=== PATIENT | male | born 1955 | race Caucasian/White ===

== ENCOUNTER 2016-09-14 14:09 | Emergency (ER) | payer OTHER, BC ==
[~2016-09-14 14:09] MED LIST: ASPIR 8181 M1 PO; GLIPIZIDE5 M1 PO; METOPROLOL SUCC25 MG PO
[2016-09-14 14:38] LABS: EOSINOPHIL (%) 2.2 % (0-5); EOSINOPHIL COUNT 0.1 K/uL (0-0.3); HEMATOCRIT 43.6 % (38.0-50.0); IMMATURE GRANULOCYTE (%) 0.2 % (0.0-0.7); IMMATURE GRANULOCYTE COUNT 0.1 K/uL; LYMPHOCYTE COUNT 1.5 K/uL (1.0-2.8); MCH 31.1 PG (29.0-34.0); MCHC 35.1 G/DL (30.0-36.0); MCV 88.6 FL (86-99); MONOCYTE (%) 5.9 % (3-12); MONOCYTE COUNT 0.3 K/uL (0-0.8); NEUTROPHIL (%) 62.2 % (45-76); NEUTROPHIL COUNT 3.1 K/uL (1.8-6.4); PLATELET COUNT 184 K/uL (156-360); RBC DIS.WIDTH-SD 41.3 % (39-53); RED BLOOD COUNT 4.92 M/uL (4.00-5.50); WHITE BLOOD COUNT 5.1 K/uL (4.1-10.2)
[2016-09-14 14:47] LABS: AMYLASE 62 IU/L (1-118)
[2016-09-14 14:48] LABS: CHLORIDE 105 mEq/L (99-109); POTASSIUM 3.9 mEq/L (3.7-5.4); SODIUM 140 mEq/L (136-147)
[2016-09-14 14:49] LABS: GLUCOSE 268 mg/dL (70-99)
[2016-09-14 14:50] LABS: ANION GAP 11 MEQ/L (2-14)
[2016-09-14 14:52] LABS: SERUM ETHYL ALCOHOL < 10 mg/dL
[2016-09-14 14:53] LABS: GFR ESTIMATE (CALCULATED) > 59 mL/min/
[2016-09-14 14:54] LABS: UREA NITROGEN (BUN) 13 mg/dL (9-23)
[2016-09-14 14:56] LABS: LIPASE 74 U/L (1.0-51.0)
[2016-09-14 15:39] LABS: AMPHETAMINE NEGATIVE (500 ng/mL); BARBITURATES NEGATIVE (200 ng/mL); BENZODIAZEPINES NEGATIVE (150 ng/mL); COCAINE NEGATIVE (150 ng/mL); INTERNAL CONTROLS VALID? YES; METHADONE NEGATIVE (200 ng/mL); METHAMPHETAMINE NEGATIVE (500 ng/mL); OPIATES (MORPHINE) NEGATIVE (100 ng/mL); OXYCODONE NEGATIVE (100 ng/mL); PHENCYCLIDINE NEGATIVE (25 ng/mL); PROPOXYPHENE NEGATIVE (300 ng/mL); THC CANNABINOIDS NEGATIVE (50 ng/mL); TRICYCLIC ANTIDEPRESSANTS NEGATIVE (300 ng/mL)
[2016-09-14 15:44] LABS: ADD MIUA? YES; BILIRUBIN NEGATIVE; BLOOD SMALL; COLOR YELLOW ((YELLOW)); GLUCOSE (STRIP) >=500; KETONES 5; LEUKOCYTES NEGATIVE; NITRITE NEGATIVE; PROTEIN (STRIP) 100; SPECIFIC GRAVITY 1.033 (1.000-1.030)
[2016-09-14 15:57] LABS: BACTERIA NONE SEEN /HPF; EPITHELIAL CELLS NONE SEEN /HPF; MUCUS TRACE /LPF; UCUL ADDED? NO; WHITE BLOOD CELLS 0-5 /HPF (0-5)
== END 2016-09-14 16:40 | disposition home or self-care (01) ==
LOC: TRA 14:09
PROVIDERS: Emergency Medicine
DX: Z04.1 Encounter for examination and observation following transport accident (principal); R07.81 Pleurodynia; I10 Essential (primary) hypertension; E11.9 Type 2 diabetes mellitus without complications; Z95.1 Presence of aortocoronary bypass graft; Z79.82 Long term (current) use of aspirin
CPT/HCPCS: 70450; 71010; 71260; 72125; 74177; 80048; 81003; 82150; 83690; 85025; 86850; 86900; 86901; 99281; 99284; G0480

== ENCOUNTER 2018-01-23 12:46 | Day surgery (SDC) | payer BC ==
[~2018-01-23] VITALS: Ht 188 cm; Wt 102.0 kg
[~2018-01-23 12:46] MED LIST changes: +ACTOS15 MG PO; +ACTOS30 MG PO; +ATORVASTATIN CA40 MG PO; +IMDUR60 MG PO; +LISINOPRIL2.5 MG PO; +METFORMIN HCL500 MG PO; +NITROSTAT0.4 MG SL; +PLAVIX75 MG PO; +TRESIBA FL100 UNIT/1 SC; +VITAMIN D31000 UNIT PO
[2018-01-23 23:00] VITALS: BP 134/72
[2018-01-24 04:30] VITALS: BP 115/59
[2018-01-24 05:56] LABS: BASOPHIL (%) 0.3 % (0-1); EOSINOPHIL (%) 2.9 % (0-5); EOSINOPHIL COUNT 0.2 K/uL (0-0.3); HEMATOCRIT 37.9 % (38.0-50.0); HEMOGLOBIN 13.1 G/DL (12.5-16.6); IMMATURE GRANULOCYTE (%) 0.2 % (0.0-0.7); LYMPHOCYTE (%) 25.9 % (15-42); LYMPHOCYTE COUNT 1.5 K/uL (1.0-2.8); MCH 30.9 PG (29.0-34.0); MCHC 34.6 G/DL (30.0-36.0); MCV 89.4 FL (86-99); MONOCYTE (%) 6.2 % (3-12); MONOCYTE COUNT 0.4 K/uL (0-0.8); NEUTROPHIL (%) 64.5 % (45-76); NEUTROPHIL COUNT 3.7 K/uL (1.8-6.4); PLATELET COUNT 170 K/uL (156-360); RBC DIS.WIDTH-CV 13.2 % (11.8-14.6); RBC DIS.WIDTH-SD 43.1 % (39-53); RED BLOOD COUNT 4.24 M/uL (4.00-5.50); WHITE BLOOD COUNT 5.8 K/uL (4.1-10.2)
[2018-01-24 06:22] LABS: CHLORIDE 105 MEQ/L (99-109); CREATININE 0.9 MG/DL (0.6-1.3); GFR ESTIMATE (CALCULATED) > 59 mL/min/ (58.99-99999); GLUCOSE 204 mg/dL (70-99); POTASSIUM 4.1 MEQ/L (3.7-5.4); SODIUM 139 MEQ/L (136-147); UREA NITROGEN (BUN) 14 mg/dL (9-23)
[2018-01-24 09:33] LABS: HEMOGLOBIN A1c (GLYCOHEMOGLOB) 10.2 % (Below 5.7)
[2018-01-24 09:36] VITALS: BP 119/59
== END 2018-01-24 11:48 | disposition home or self-care (01) ==
LOC: CATH 12:46 → 4EAST 17:40 → ENRESERV 18:50 → ENPENDDIS 01-24 → 4EAST 01-24 11:48
PROVIDERS: Internal Medicine Cardiovascular Disease
DX: I25.10 Atherosclerotic heart disease of native coronary artery without angina pectoris (principal); T82.858A Stenosis of other vascular prosthetic devices, implants and grafts, initial encounter; E78.5 Hyperlipidemia, unspecified; I25.2 Old myocardial infarction; I10 Essential (primary) hypertension; E11.51 Type 2 diabetes mellitus with diabetic peripheral angiopathy without gangrene; Z79.02 Long term (current) use of antithrombotics/antiplatelets; Z95.5 Presence of coronary angioplasty implant and graft; Z79.84 Long term (current) use of oral hypoglycemic drugs
CPT/HCPCS: 80048; 82948; 83036; 85025; 85347; 93005; C1769; C1874; C1887; C1894; G0378; J0153; J0583; J1644; J1815; J2250; J3010